=== PATIENT | male | born 1955 | race Caucasian/White ===

== ENCOUNTER 2018-09-14 12:23 | Emergency (ER) | payer MEDICAID ==
[~2018-09-14] VITALS: Ht 177.8 cm; Wt 106.0 kg
[~2018-09-14 12:23] MED LIST: ATEN50TA41 PO; LISI-600 PO; METF-950 PO; NITR-79 PO; ONDA4TAB6 PO; PANT-47 PO
[2018-09-14 13:33] LABS: BASOPHILS # (AUTO) 0.1 X10'3 (0-0.2); BASOPHILS % (AUTO) 0.8 % (0-1); EOSINOPHILS # (AUTO) 0.6 X10'3 (0-0.9); EOSINOPHILS % (AUTO) 7.1 % (0-6); HEMATOCRIT 46.2 % (42.0-52.0); HEMOGLOBIN 14.9 g/dl (14.0-17.9); LYMPHOCYTES # (AUTO) 1.7 X10'3 (1.1-4.8); LYMPHOCYTES % (AUTO) 21.1 % (21-51); MEAN CORPUSCULAR HEMOGLOBIN 28.2 PG (27.0-31.0); MEAN CORPUSCULAR HGB CONC 32.3 g/dL (33.0-36.5); MEAN CORPUSCULAR VOLUME 87.4 FL (78-98); MEAN PLATELET VOLUME 6.8 FL (7.4-10.4); MONOCYTES # (AUTO) 0.9 X10'3 (0-0.9); MONOCYTES % (AUTO) 10.4 % (2-12); NEUTROPHILS % (AUTO) 60.6 % (42-75); PLATELET COUNT 350 X10'3 (140-440); RED BLOOD COUNT 5.28 X10'6 (4.70-6.10); RED CELL DISTRIBUTION WIDTH 15.6 % (11.5-14.5); WHITE BLOOD COUNT 8.3 X10'3 (4.5-11.0)
[2018-09-14 13:54] LABS: ALANINE AMINOTRANSFERASE 31 U/L (12-78); ALBUMIN/GLOBULIN RATIO 0.7 (1.1-1.5); ALKALINE PHOSPHATASE 80 IU/L (46-116); ANION GAP 4 (8-16); ASPARTATE AMINO TRANSFERASE 21 U/L (10-37); BILIRUBIN,TOTAL 0.2 MG/DL (0.1-1.0); BLOOD UREA NITROGEN 12 MG/DL (7-18); BUN/CREATININE RATIO 10.8 (5.4-32.0); CALCIUM 8.8 MG/DL (8.5-10.1); CHLORIDE 103 MMOL/L (99-107); CREATININE 1.11 MG/DL (0.60-1.10); GLUCOSE 142 MG/DL (70-104); PARTIAL THROMBOPLASTIN TIME 27 SECONDS (22-32); POTASSIUM 3.9 MMOL/L (3.5-5.1); SODIUM 138 MMOL/L (135-145); TOTAL CARBON DIOXIDE 31.5 MMOL/L (24-32); TOTAL PROTEIN 7.5 G/DL (6.4-8.2); eGFR 67 ML/MIN
[2018-09-14 18:30] LABS: ABG BASE EXCESS 3.4 mmol/L (-2.0-3.0); ABG HCO3 28.7 mmol/L (22.0-26.0); ABG OXYGEN SATURATION 96.2 % (95-98); ABG PCO2 (T) 45.7 mmHg (35.0-48.0); ABG PH (T) 7.416 (7.350-7.450); ABG PO2 (T) 79.8 mmHg (83-108); ALLEN'S TEST Positive; FCOHb 2.8 % (0.5-1.5); FMetHb 0.2 % (0.3-1.12); FO2Hb 93.3 % (94-100); TOTAL HEMOGLOBIN 15.5 G/dl (14.0-18.0)
[2018-09-14] MEDS ORDERED: metoprolol tartrate 50mg tablet PO ONE (18:40)
[2018-09-14 19:27] LABS: D-DIMER 0.89 MG/L FEU (0-0.50)
[2018-09-14] MEDS ORDERED: iohexol 350MG/ML 100ml bottle IV ONE (19:39)
[2018-09-14] MEDS ORDERED: ipratropium/albuterol 3ml nebule NEB ONE (20:20)
[2018-09-14] MEDS ORDERED: methylPREDNISolone sod succ 125mg/2ml vial IV ONE (20:20)
[2018-09-14] MEDS ORDERED: metoprolol tartrate 1mg/ml inj IV ONE (20:45)
[2018-09-14] MEDS ORDERED: AZIT-63 PO (21:11)
[2018-09-14] MEDS ORDERED: PRED20TA PO (21:11)
[2018-09-14] MEDS ORDERED: ALBU18HF2 INH (21:11)
[2018-09-14 21:28] VITALS: BP 196/125
== END 2018-09-14 21:32 | disposition home or self-care (01) ==
LOC: ER 12:24
DX: J44.1 Chronic obstructive pulmonary disease with (acute) exacerbation (principal); I10 Essential (primary) hypertension; R60.0 Localized edema; E11.9 Type 2 diabetes mellitus without complications; F17.200 Nicotine dependence, unspecified, uncomplicated; F12.90 Cannabis use, unspecified, uncomplicated; F15.90 Other stimulant use, unspecified, uncomplicated; F11.90 Opioid use, unspecified, uncomplicated; Z98.890 Other specified postprocedural states; Z88.5 Allergy status to narcotic agent; Z79.84 Long term (current) use of oral hypoglycemic drugs; Z79.899 Other long term (current) drug therapy
CPT/HCPCS: 36415; 36600; 71045; 71275; 80053; 82803; 82948; 83880; 84484; 85018; 85025; 85379; 85610; 85730; 93005; 94640; 94760; 96372; 96374; 99284; J2930; Q9967; J3490

== ENCOUNTER 2018-09-19 12:21 | Emergency (ER) | payer MEDICAID ==
[~2018-09-19] VITALS: Ht 177.8 cm; Wt 94.1 kg
[2018-09-19] VITALS (10 sets, daily range): BP systolic 147–209; BP diastolic 87–133
[~2018-09-19 12:21] MED LIST changes: +ALBU18HF2 INH; +AZIT-63 PO; +PRED20TA PO
[2018-09-19] MEDS ORDERED: tranexamic acid 100mg/ml inj. IV ONE (12:50)
[2018-09-19] MEDS ORDERED: octreotide 100mcg/1 ml ampule IV ONE (12:50)
[2018-09-19] MEDS ORDERED: pantoprazole IV 80 MG in normal saline 100ml IV soln 100 ML IV ONE ×4 (12:50)
[2018-09-19] MEDS ORDERED: octreotide inj. 1,250 MCG in normal saline 250ml IV soln 243.75 ML IV SCH (12:50)
[2018-09-19] MEDS ORDERED: metoclopramide 5 mg/ml inj IV ONE (12:50)
[2018-09-19] MEDS ORDERED: ESOMEPRAZOLE 40 MG VIAL IV ONE (13:00)
[2018-09-19] MEDS ORDERED: pantoprazole 40MG/NS 100ML BAG 100 ML IV SCH (13:00)
[2018-09-19 13:31] LABS: BASOPHILS # (AUTO) 0.1 X10'3 (0-0.2); BASOPHILS % (AUTO) 0.4 % (0-1); EOSINOPHILS # (AUTO) 0.3 X10'3 (0-0.9); EOSINOPHILS % (AUTO) 2.3 % (0-6); HEMOGLOBIN 14.9 g/dl (14.0-17.9); LYMPHOCYTES # (AUTO) 0.5 X10'3 (1.1-4.8); LYMPHOCYTES % (AUTO) 3.8 % (21-51); MEAN CORPUSCULAR HEMOGLOBIN 27.9 PG (27.0-31.0); MEAN CORPUSCULAR HGB CONC 32.5 g/dL (33.0-36.5); MEAN CORPUSCULAR VOLUME 85.8 FL (78-98); MEAN PLATELET VOLUME 7.3 FL (7.4-10.4); MONOCYTES # (AUTO) 0.8 X10'3 (0-0.9); MONOCYTES % (AUTO) 5.8 % (2-12); NEUTROPHILS % (AUTO) 87.7 % (42-75); PLATELET COUNT 327 X10'3 (140-440); RED BLOOD COUNT 5.36 X10'6 (4.70-6.10); RED CELL DISTRIBUTION WIDTH 15.6 % (11.5-14.5); WHITE BLOOD COUNT 13.7 X10'3 (4.5-11.0)
[2018-09-19 13:41] LABS: ALANINE AMINOTRANSFERASE 34 U/L (12-78); ALBUMIN/GLOBULIN RATIO 0.7 (1.1-1.5); ALKALINE PHOSPHATASE 73 IU/L (46-116); ANION GAP 5 (8-16); ASPARTATE AMINO TRANSFERASE 23 U/L (10-37); BILIRUBIN,TOTAL 0.6 MG/DL (0.1-1.0); BLOOD UREA NITROGEN 19 MG/DL (7-18); BUN/CREATININE RATIO 21.8 (5.4-32.0); CALCIUM 7.6 MG/DL (8.5-10.1); CHLORIDE 103 MMOL/L (99-107); CREATININE 0.87 MG/DL (0.60-1.10); GLUCOSE 143 MG/DL (70-104); POTASSIUM 3.9 MMOL/L (3.5-5.1); SODIUM 137 MMOL/L (135-145); TOTAL CARBON DIOXIDE 28.7 MMOL/L (24-32); TOTAL PROTEIN 7.1 G/DL (6.4-8.2); eGFR 89 ML/MIN
[2018-09-19 13:46] LABS: PARTIAL THROMBOPLASTIN TIME 27 SECONDS (22-32)
[2018-09-19 13:54] LABS: CLARITY,URINE SLIGHTLY CLOUDY (Clear); COLOR,URINE YELLOW (Yellow); GLUCOSE, URINE NEGATIVE (Neg); KETONES,URINE NEGATIVE (Neg); LEUKOCYTE ESTERASE ,URINE SMALL (Neg); NITRITES, URINE NEGATIVE (Neg); OCCULT BLOOD,URINE NEGATIVE (Neg); PROTEIN,URINE NEGATIVE (Neg); UROBILINOGEN,URINE 0.2 E.U/dL (0.2-1.0)
[2018-09-19 14:03] LABS: UA COLLECTION TYPE CLN CATCH MIDSTREAM
[2018-09-19 14:04] LABS: SQUAMOUS EPITHELIAL CELL,UR FEW /LPF (FEW)
[2018-09-19 14:05] LABS: BACTERIA,URINE 1+ /HPF (Neg); RBC,URINE 0-2 /HPF (0-2); WBC CLUMPS,URINE FEW /HPF (NEGATIVE)
[2018-09-19] MEDS ORDERED: fentaNYL/PF 50MCG/1 ML 2ML syringe ONE (14:14)
[2018-09-19] MEDS ORDERED: MIDAZolam 5mg/5ml vial ONE (14:15)
[2018-09-19] MEDS ORDERED: LIDOcaine Viscous 15ml cup ONE (14:15)
[2018-09-19] MEDS ORDERED: ipratropium/albuterol 3ml nebule NEB ONE (16:10)
[2018-09-19] MEDS ORDERED: OMEP20TA5 PO (16:26)
[2018-09-19] MEDS ORDERED: hyDRALAzine 10mg tablet PO SCH (16:35)
[2018-09-19] MEDS ORDERED: hyDRALAzine 10mg tablet PO ONE (16:35)
[2018-09-21 08:03] LABS: OCCULT BLOOD STOOL POSITIVE (Neg)
== END 2018-09-19 17:05 | disposition home or self-care (01) ==
LOC: ER 12:21
DX: R11.10 Vomiting, unspecified (principal); R10.10 Upper abdominal pain, unspecified; R14.0 Abdominal distension (gaseous); I10 Essential (primary) hypertension; E11.9 Type 2 diabetes mellitus without complications; F12.90 Cannabis use, unspecified, uncomplicated; F15.90 Other stimulant use, unspecified, uncomplicated; F11.90 Opioid use, unspecified, uncomplicated; R06.02 Shortness of breath; Z98.890 Other specified postprocedural states; Z88.5 Allergy status to narcotic agent; Z79.899 Other long term (current) drug therapy
CPT/HCPCS: 36415; 43235; 80053; 81001; 82272; 85025; 85610; 85730; 86885; 86900; 86901; 87077; 87088; 87186; 93005; 94640; 96365; 96366; 96368; 96375; 96376; 99152; 99285; C9113; J2250; J2354; J2765; J3010; J7040; J7050; A4620

== ENCOUNTER 2018-10-20 07:33 | Emergency (ER) | payer MEDICAID ==
[~2018-10-20] VITALS: Ht 177.8 cm; Wt 90.9 kg
[~2018-10-20 07:33] MED LIST changes: -AZIT-63 PO; +OMEP20TA5 PO; -PRED20TA PO
[2018-10-20 08:56] LABS: BASOPHILS # (AUTO) 0.1 X10'3 (0-0.2); EOSINOPHILS # (AUTO) 0.7 X10'3 (0-0.9); EOSINOPHILS % (AUTO) 8.4 % (0-6); HEMATOCRIT 47.4 % (42.0-52.0); HEMOGLOBIN 15.3 g/dl (14.0-17.9); LYMPHOCYTES # (AUTO) 1.8 X10'3 (1.1-4.8); LYMPHOCYTES % (AUTO) 22.6 % (21-51); MEAN CORPUSCULAR HEMOGLOBIN 26.8 PG (27.0-31.0); MEAN CORPUSCULAR HGB CONC 32.2 g/dL (33.0-36.5); MEAN CORPUSCULAR VOLUME 83.1 FL (78-98); MEAN PLATELET VOLUME 6.6 FL (7.4-10.4); MONOCYTES # (AUTO) 0.8 X10'3 (0-0.9); MONOCYTES % (AUTO) 10.5 % (2-12); NEUTROPHILS # (AUTO) 4.5 X10'3 (1.8-7.7); NEUTROPHILS % (AUTO) 57.5 % (42-75); PLATELET COUNT 285 X10'3 (140-440); RED CELL DISTRIBUTION WIDTH 16.8 % (11.5-14.5); WHITE BLOOD COUNT 7.9 X10'3 (4.5-11.0)
[2018-10-20 09:03] LABS: ALBUMIN 3.3 G/DL (3.4-5.0); ANION GAP 4 (8-16); BLOOD UREA NITROGEN 11 MG/DL (7-18); BUN/CREATININE RATIO 10.5 (5.4-32.0); CALCIUM 8.5 MG/DL (8.5-10.1); CHLORIDE 103 MMOL/L (99-107); CREATININE 1.05 MG/DL (0.60-1.10); GLUCOSE 118 MG/DL (70-104); SODIUM 140 MMOL/L (135-145); TOTAL CARBON DIOXIDE 33.1 MMOL/L (24-32); eGFR 72 ML/MIN
[2018-10-20] MEDS ORDERED: FURO-149 PO (10:10)
[2018-10-20] MEDS ORDERED: POTA-82 PO (10:10)
[2018-10-20] MEDS ORDERED: traMADol 50MG tablet PO ONE (10:40)
[2018-10-20 10:48] VITALS: BP 195/98
== END 2018-10-20 10:50 | disposition home or self-care (01) ==
LOC: ER 07:34
DX: I87.2 Venous insufficiency (chronic) (peripheral) (principal); R60.0 Localized edema; M79.661 Pain in right lower leg; M79.672 Pain in left foot; M79.671 Pain in right foot; I10 Essential (primary) hypertension; E11.9 Type 2 diabetes mellitus without complications; F12.90 Cannabis use, unspecified, uncomplicated; F15.90 Other stimulant use, unspecified, uncomplicated; F11.90 Opioid use, unspecified, uncomplicated; Z98.890 Other specified postprocedural states; Z88.5 Allergy status to narcotic agent; Z79.899 Other long term (current) drug therapy
CPT/HCPCS: 36415; 80048; 85025; 93971; 99284

== ENCOUNTER 2021-01-30 16:47 | Emergency (ER) | payer MEDICAID ==
[~2021-01-30] VITALS: Ht 177.8 cm; Wt 82.0 kg
[~2021-01-30 16:47] MED LIST changes: +FURO-149 PO; -LISI-600 PO; +LISI20TA28 PO; +METF-1203 PO; -METF-950 PO; +POTA-82 PO
[2021-01-30 16:56] VITALS: BP 212/121
[2021-01-30] MEDS ORDERED: acetaminophen 325mg tablet PO ONE (17:00)
[2021-01-30] MEDS ORDERED: ketorolac tromethamine 15mg/ml inj. IV ONE (17:05)
[2021-01-30] MEDS ORDERED: normal saline 1000ML IV soln IV ONE (17:05)
[2021-01-30 17:19] LABS: CLARITY,URINE SLIGHTLY CLOUDY (Clear); GLUCOSE, URINE NEGATIVE (Neg); KETONES,URINE NEGATIVE (Neg); LEUKOCYTE ESTERASE ,URINE MODERATE (Neg); NITRITES, URINE NEGATIVE (Neg); OCCULT BLOOD,URINE MODERATE (Neg); PH,URINE 7.5 (4.8-8.0); PROTEIN,URINE 30 mg/dl (Neg); UROBILINOGEN,URINE 0.2 E.U/dL (0.2-1.0)
[2021-01-30 17:21] LABS: BASOPHILS % (AUTO) 0.3 % (0-1); EOSINOPHILS # (AUTO) 0.1 X10'3 (0-0.9); EOSINOPHILS % (AUTO) 0.7 % (0-6); HEMATOCRIT 43.9 % (42.0-52.0); HEMOGLOBIN 14.7 g/dl (14.0-17.9); LYMPHOCYTES # (AUTO) 0.7 X10'3 (1.1-4.8); LYMPHOCYTES % (AUTO) 6.5 % (21-51); MEAN CORPUSCULAR HEMOGLOBIN 30.5 PG (27.0-31.0); MEAN CORPUSCULAR HGB CONC 33.6 g/dL (33.0-36.5); MEAN CORPUSCULAR VOLUME 90.7 FL (78-98); MEAN PLATELET VOLUME 6.8 FL (7.4-10.4); MONOCYTES # (AUTO) 1.1 X10'3 (0-0.9); MONOCYTES % (AUTO) 10.1 % (2-12); NEUTROPHILS # (AUTO) 8.7 X10'3 (1.8-7.7); NEUTROPHILS % (AUTO) 82.4 % (42-75); PLATELET COUNT 219 X10'3 (140-440); RED BLOOD COUNT 4.84 X10'6 (4.70-6.10); RED CELL DISTRIBUTION WIDTH 14.2 % (11.5-14.5); WHITE BLOOD COUNT 10.6 X10'3 (4.5-11.0)
[2021-01-30 17:21] LABS: COLOR,URINE STRAW (Yellow); UA COLLECTION TYPE VOIDED
[2021-01-30 17:30] LABS: ALANINE AMINOTRANSFERASE 40 U/L (12-78); ALBUMIN 3.1 G/DL (3.4-5.0); ALBUMIN/GLOBULIN RATIO 0.6 (1.1-1.5); ALKALINE PHOSPHATASE 93 IU/L (46-116); ANION GAP 6 (8-16); ASPARTATE AMINO TRANSFERASE 28 U/L (10-37); BILIRUBIN,TOTAL 0.5 MG/DL (0.1-1.0); BLOOD UREA NITROGEN 10 MG/DL (7-18); BUN/CREATININE RATIO 8.7 (5.4-32.0); CALCIUM 8.4 MG/DL (8.5-10.1); CHLORIDE 95 MMOL/L (99-107); CREATININE 1.15 MG/DL (0.60-1.10); GLUCOSE 195 MG/DL (70-104); POTASSIUM 3.8 MMOL/L (3.5-5.1); SODIUM 133 MMOL/L (135-145); TOTAL CARBON DIOXIDE 32.4 MMOL/L (24-32); TOTAL PROTEIN 8.5 G/DL (6.4-8.2); eGFR 64 ML/MIN
[2021-01-30 17:35] LABS: BACTERIA,URINE 1+ /HPF (Neg); MUCUS STRANDS NONE SEEN /LPF (Neg); SQUAMOUS EPITHELIAL CELL,UR NONE SEEN /LPF (FEW)
[2021-01-30 17:36] LABS: HYALINE CASTS 0-3 /LPF (NEGATIVE); WBC CLUMPS,URINE FEW /HPF (NEGATIVE)
[2021-01-30] MEDS ORDERED: CefTRIAXone/D5W-Rocephin 1gm 50 ML IV ONE (17:45)
[2021-01-30] MEDS ORDERED: dexamethasone sod phosphate 10mg/ml inj IV STA (17:47)
--- NOTE | 2021-01-30 18:15 | NUR ---
Pt is thrashing and tossing back and forth in bed. He accidently pulled out his IV L AC.
[2021-01-30] MEDS ORDERED: morphine 2 MG/ML inj. syringe IV ONE (18:40)
[2021-01-30] MEDS ORDERED: ondansetron/PF 4mg/2ml inj IV ONE (18:40)
--- NOTE | 2021-01-30 18:45 | NUR ---
Pt stated strongly that he wants to go home. "I don't do hospitals." Provider notified.
[2021-01-30] MEDS ORDERED: CEFD300C22 PO (18:47)
--- NOTE | 2021-01-30 18:50 | NUR ---
Pt signed AMA forms. Both IV's were d/c'd. Pt left the department.
== END 2021-01-30 19:04 | disposition left against medical advice (07) ==
LOC: ER 16:47
DX: U07.1 COVID-19 (principal); N39.0 Urinary tract infection, site not specified; N20.0 Calculus of kidney
CPT/HCPCS: 36415; 71045; 74176; 80053; 81001; 83605; 84145; 84484; 85025; 87040; 87077; 87088; 87186; 87635; 93005; 96374; 99285; C9803; J1100; J7030; 96361